=== PATIENT | male | born 1965 | race Caucasian/White ===

== ENCOUNTER 2017-10-25 09:58 | Observation (INO) ==
[2017-10-25] MEDS ORDERED: Dicyclomine Inj 20 MG/2 ML Ampul IM ONE (10:36)
[2017-10-25] MEDS ORDERED: Sod Chloride 0.9% Inj 1,000 ML IV.SIG ONE (10:36)
--- NOTE | 2017-10-25 10:57 | ED ---
HPI General Chief complaint: Nausea/Vomiting/Diarrhea Stated complaint: GI Time Seen by Provider: 10/25/17 10:32 History of Present Illness HPI Narrative: Patient comes emerge from complaining of nausea, vomiting, and diarrhea ongoing for 4 days. Patient reports 3 other people in the house where he is living has similar symptoms. Patient denies any fevers, chest pain, shortness of breath, loss or change in bladder. Patient reports associated decreased appetite. Denies anything making symptoms better. Eating or drinking anything makes symptoms worse. Denies any recent antibiotic use or travel. Patient reports associated right lower quadrant tenderness. Related Data Home Medications Medication Instructions Recorded Confirmed No Known Home Medications 10/25/17 10/25/17 Allergies Allergy/AdvReac Type Severity Reaction Status Date / Time Penicillins Allergy Unknown Verified 10/25/17 10:36 Review of Systems Except as stated in HPI: all other systems reviewed are negative [facility] Medical History Medical History Medical history unknown (Acute) Patient denies medical problems (Acute) Social History Social History Substance History: No History of Abuse Second Hand Smoke Exposure: Yes Smoking Status: Current every day smoker Tobacco Type: Cigarettes How Often Do You Have a Drink Containing Alcohol: Monthly or less Recent Travel in [facility] within the Last 8 Weeks: No Recent Out of Country Travel within the Last 8 Weeks: No Immunization History Tetanus Immunization: Unsure Exam Narrative Exam Narrative: GENERAL: Well-developed, well nourished, in no acute distress, and non-ill appearing. SKIN: Focused skin assessment warm and dry. HEAD: Atraumatic. Normocephalic. EYES: Pupils equal and round. EOMI. No scleral icterus. No injection or drainage. ENT: No nasal bleeding or discharge. Mucous membranes pink and moist. NECK: Trachea midline. Supple. No nuclear rigidity. CARDIOVASCULAR: Regular rate and rhythm. No murmur appreciated. RESPIRATORY: No accessory muscle use. No respiratory distress. Clear to auscultation. Breath sounds equal bilaterally. GASTROINTESTINAL: Abdomen soft, nondistended, and no guarding. Hepatic and splenic margins not palpable. Normal bowel sounds x4. No pulsatile mass. Patient reports tenderness to palpation right lower quadrant. No peritoneal signs. MUSCULOSKELETAL: No obvious deformities. No clubbing. No cyanosis. No edema. Full range of motion. NEUROLOGICAL: Awake and alert. No obvious cranial nerve deficits. Motor grossly within normal limits. Normal speech. PSYCHIATRIC: Appropriate mood and affect; insight and judgment normal. Course Consultations Consultation #1: Discussed patient with Dr. Castillo's SPIN INSTRUCTOR, who is agreeable to admit the patient for Dr. Castillo. Time: 14:55 Initial Documented Vital Signs Temperature 97.7 F 10/25/17 10:03 Pulse Rate 74 10/25/17 10:03 Respiratory Rate 18 10/25/17 10:03 Blood Pressure 112/61 10/25/17 10:03 Pulse Oximetry 98 10/25/17 10:03 Last Documented Vital Signs Temperature 97.7 F 10/25/17 10:03 Pulse Rate 54 L 10/25/17 12:17 Respiratory Rate 16 10/25/17 12:17 Blood Pressure 119/72 10/25/17 12:17 Pulse Oximetry 100 10/25/17 12:18 Medical Decision Making MDM Narrative Medical decision making narrative: Patient seen and examined. IV was established patient was placed on continues cardiac monitoring. Initial laboratory studies were ordered. Patient was given Zofran, Bentyl, and IV fluids. Upon noted elevated lipase CT abdomen was ordered. Patient states that he has not drank since February, but used to be a heavy drinker. Discussed patient with Dr. Self, who saw evaluated patient recommends patient be admitted. Discussed all findings and plan of care patient is agreeable for admission for admission. All questions were answered. Discussed patient with hospitalist, who is agreeable to admit the patient. Patient remained stable throughout ED course. Differential Diagnosis Differential Diagnosis: Dehydration, renal insufficiency, pancreatitis, appendicitis, gastroenteritis, metabolic disturbance Lab Data Result diagrams: 10/25/17 10:36 10/25/17 10:36 Lab Results 10/25/17 10/25/17 Range/Units 10:36 10:36 WBC 3.5 L (4.0-11.0) th/mm3 RBC 4.27 L (4.50-5.90) mil/mm3 Hgb 13.1 (13.0-17.0) gm/dL Hct 39.1 (39.0-51.0) % MCV 91.6 (80.0-100.0) fL MCH 30.7 (27.0-34.0) pg MCHC 33.5 (32.0-36.0) % RDW 14.6 (11.6-17.2) % Plt Count 224 (150-450) th/mm3 MPV 7.7 (7.0-11.0) fL Neut % (Auto) 53.5 (16.0-70.0) % Lymph % (Auto) 30.0 (9.0-44.0) % Dolores % (Auto) 15.3 H (0.0-8.0) % Eos % (Auto) 0.9 (0.0-4.0) % Baso % (Auto) 0.3 (0.0-2.0) % Neut # (Auto) 1.9 (1.8-7.7) th/mm3 Lymph # (Auto) 1.0 (1.0-4.8) th/mm3 Dolores # (Auto) 0.5 (0.0-0.9) th/mm3 Eos # (Auto) 0.0 (0.0-0.4) th/mm3 Baso # (Auto) 0.0 (0.0-0.2) th/mm3 WBC Differential . Differential Comment Auto diff final Sodium 141 (136-145) meq/L Potassium 4.3 (3.5-5.1) meq/L Chloride 107 (98-107) meq/L Carbon Dioxide 24.4 (21.0-32.0) meq/L Anion Gap 10 (5-15) meq/L BUN 18 (7-18) mg/dL Creatinine 1.01 (0.60-1.30) mg/dL Estimated GFR 78 L (>89) mL/min Random Glucose 91 (74-106) mg/dL Calcium 8.4 L (8.5-10.1) mg/dL Total Bilirubin 0.4 (0.2-1.0) mg/dL AST 33 (15-37) U/L ALT 33 (12-78) U/L Alkaline Phosphatase 88 (45-117) U/L Total Protein 7.3 (6.4-8.2) g/dL Albumin 3.5 (3.4-5.0) g/dL Lipase 920 H (73-393) U/L Imaging Data Radiologist's impression: Abdomen/Pelvis CT 10/25/17 11:50 CONCLUSION: 1. No evidence for bowel obstruction. 2. Normal appendix. Discharge Plan Discharge Disposition Patient Disposition: 30 Still Patient Discharge Condition Condition: Stable Discharge Details Diagnosis: Pancreatitis Physicians Team ED Provider: Daniel Self ED Midlevel Provider: Shahram Yanez Primary Care Provider: Primary Care Susan Amato Attending Provider: Sandra Castillo Discharge Interventions Interventions: Vital Signs Last Done: 10/25/17 12:17 Status ED Status: Admitted Observation Patient
[2017-10-25 11:37] LABS: Baso % (Auto) 0.3 % (0.0-2.0); Eos % (Auto) 0.9 % (0.0-4.0); Hematocrit 39.1 % (39.0-51.0); Hemoglobin 13.1 gm/dL (13.0-17.0); Mean Corpuscular HGB Conc 33.5 % (32.0-36.0); Mean Corpuscular Hemoglobin 30.7 pg (27.0-34.0); Mean Corpuscular Volume 91.6 fL (80.0-100.0); Mean Platelet Volume 7.7 fL (7.0-11.0); Mono # (Auto) 0.5 th/mm3 (0.0-0.9); Mono % (Auto) 15.3 % (0.0-8.0); Neut # (Auto) 1.9 th/mm3 (1.8-7.7); Neut % (Auto) 53.5 % (16.0-70.0); Platelet Count 224 th/mm3 (150-450); Red Blood Count 4.27 mil/mm3 (4.50-5.90); Red Cell Distribution Width 14.6 % (11.6-17.2); White Blood Count 3.5 th/mm3 (4.0-11.0)
[2017-10-25 11:48] LABS: Albumin 3.5 g/dL (3.4-5.0); Anion Gap 10 meq/L (5-15); Aspartate Aminotransferase 33 U/L (15-37); Blood Urea Nitrogen 18 mg/dL (7-18); Calcium 8.4 mg/dL (8.5-10.1); Carbon Dioxide 24.4 meq/L (21.0-32.0); Chloride 107 meq/L (98-107); Glomerular Filtration Rate 78 mL/min (>89); Glucose,Random 91 mg/dL (74-106); Lipase 920 U/L (73-393); Potassium 4.3 meq/L (3.5-5.1); Sodium 141 meq/L (136-145)
[2017-10-25 11:49] LABS: Alanine Aminotransferase 33 U/L (12-78)
[2017-10-25 11:51] LABS: Alkaline Phosphatase 88 U/L (45-117); Total Protein 7.3 g/dL (6.4-8.2)
--- NOTE | 2017-10-25 13:52 | CT ---
EXAM DATE: 10/25/2017 1:47 PM EDT AGE/SEX: 52 years / Male INDICATIONS: Abdominal pain with nausea and vomiting for four days. CLINICAL DATA: This is the patient's initial encounter. Patient reports that signs and symptoms have been present for 4 - 6 days and indicates a pain score of 7/10. MEDICAL/SURGICAL HISTORY: None. None. ORAL CONTRAST: No oral contrast ingested. RADIATION DOSE: 8.87 CTDI (mGy) COMPARISON: No prior exams available for comparison. TECHNIQUE: Multiple contiguous axial images were obtained through the abdomen and pelvis following b olus infusion of 95 ml Omnipaque 350 (iohexol) nonionic water-soluble contrast as a single exam dos e. No oral contrast ingested. Using automated exposure control and adjustment of the mA and/or kV ac cording to patient size, radiation dose was kept as low as reasonably achievable to obtain optimal di agnostic quality images. DICOM format image data is available electronically for review and comparis on. FINDINGS: Lower Lungs: The visualized lower lungs are clear. Liver: The liver has a homogeneous density without space-occupying lesion. There is no dilation of th e biliary tree. Spleen: Homogeneous density without enlargement. Pancreas: Unremarkable without mass or calcification. Kidneys: Normal in size and shape. No evidence of mass or hydronephrosis. Adrenal Glands: Unremarkable. Aorta: Mild atherosclerotic changes without aneurysmal dilation. Bowel/Mesentery: The bowel loops are grossly unremarkable. The cecum and sigmoid colon have a normal configuration. Normal appendix. Abdominal Wall: Intact. Retroperitoneum: No evidence of adenopathy in the retrocrural, para-aortic, or deep pelvic regions. Bladder: Contours are smooth. Reproductive Organs: No abnormal masses or calcifications seen. Inguinal: The inguinal region is unremarkable without evidence of adenopathy. Bony Structures: Mild degenerative changes lumbar spine. CONCLUSION: 1. No evidence for bowel obstruction. 2. Normal appendix. Electronically signed by: Albaro Tarango MD 10/25/2017 1:51 PM EDT
[2017-10-25] MEDS ORDERED: Acetaminophen 325 MG Tablet PO PRN (14:59)
[2017-10-25] MEDS ORDERED: Bisacodyl 10 MG Supp RECTAL PRN (14:59)
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
[2017-10-25] MEDS: Sod Chloride 0.9% Inj 1,000 ML IV.CONT SCH (17:00)
[2017-10-25] MEDS: Senna/Docusate Sodium 8.6/50 MG Tablet PO SCH (21:24)
[2017-10-25] MEDS: Famotidine PF Inj 20 MG/2 ML Vial IV.PUSH SCH (21:24)
[2017-10-26] MEDS: Sod Chloride 0.9% Inj 1,000 ML IV.CONT SCH ×2 (04:27→10:18)
[2017-10-26 06:33] LABS: Carbon Dioxide 22.4 meq/L (21.0-32.0); Potassium 4.4 meq/L (3.5-5.1)
[2017-10-26 06:34] LABS: Calcium 8.2 mg/dL (8.5-10.1)
[2017-10-26 07:33] VITALS: RESP 18
[2017-10-26] MEDS: Senna/Docusate Sodium 8.6/50 MG Tablet PO SCH (08:10)
[2017-10-26] MEDS: Famotidine PF Inj 20 MG/2 ML Vial IV.PUSH SCH (08:10)
[2017-10-26 12:15] VITALS: BP 129/83; PULSE 55; TEMP 98; O2SAT 98
--- NOTE | 2017-10-26 12:38 | P.PN ---
Subjective Interval history: minimal RUQ pain, tolerated clear liquids well this morning no more n/v no diarrhea no fever wants to eat. 12 point ros completed, negative except as noted above Physical Exam Vital signs: Vital Signs 10/25/17 15:40 10/25/17 20:00 10/26/17 00:00 Temperature 98.5 F 98.8 F Pulse Rate 60 65 64 Respiratory Rate 20 16 16 Blood Pressure 116/70 124/81 116/74 Pulse Oximetry 100 100 99 10/26/17 04:00 10/26/17 07:31 10/26/17 08:00 Temperature 98.6 F 97.9 F Pulse Rate 67 58 L Respiratory Rate 16 18 Blood Pressure 119/82 125/86 Pulse Oximetry 99 99 99 10/26/17 12:00 Temperature 98.0 F Pulse Rate 55 L Respiratory Rate 18 Blood Pressure 129/83 Pulse Oximetry 98 Intake & Output 10/25/17 10/26/17 10/26/17 18:59 06:59 18:59 Intake Total 1000 / 1000 1000 / 1000 Balance 1000 / 1000 1000 / 1000 Weight 88.451 kg 88.45 kg Intake: IV 1000 / 1000 1000 / 1000 NS Inj 1,000 ML @ 100 mls/hr IV 1000 / 1000 .CONT .Q10H TIRSO Rx#:[id number] NS Inj 1,000 ML @ Wide Open IV. 1000 / 1000 SIG BOLUS ONE Rx#:[id number] Oral 0 / 0 Other: Date of Last Bowel Movement 10/25/17 Weight On Admission 88.451 kg Narrative: GENERAL: Well-nourished, well-developed patient in no apparent distress. SKIN: Warm and dry. HEAD: Atraumatic. Normocephalic. EYES: Pupils equal and round. No scleral icterus. No injection or drainage. ENT: No nasal bleeding or discharge. Mucous membranes pink and moist. NECK: Trachea midline. No JVD. CARDIOVASCULAR: Regular rate and rhythm. RESPIRATORY: No accessory muscle use. Clear to auscultation. Breath sounds equal bilaterally. GASTROINTESTINAL: Abdomen soft, mild right upper quadrant tenderness, nondistended. Hepatic and splenic margins not palpable. MUSCULOSKELETAL: Extremities without clubbing, cyanosis, or edema. No obvious deformities. NEUROLOGICAL: Awake and alert. No obvious cranial nerve deficits. Motor grossly within normal limits. Five out of 5 muscle strength in the arms and legs. Normal speech. PSYCHIATRIC: Appropriate mood and affect; insight and judgment normal. Results - Labs CBC & Chem 7: 10/25/17 10:36 10/26/17 05:02 Laboratory Results - last 24 hr 10/25/17 10/26/17 10:36 05:02 Sodium 142 Potassium 4.4 Chloride 111 H Carbon Dioxide 22.4 Anion Gap 9 BUN 13 Creatinine 0.95 Estimated GFR 84 L Random Glucose 91 Calcium 8.2 L Lipase 193 Serum Alcohol Less than 3 - Imaging Impressions Abdomen/Pelvis CT 10/25/17 11:50 CONCLUSION: 1. No evidence for bowel obstruction. 2. Normal appendix. Assessment and Plan - Assessment (1) Pancreatitis Code(s): K85.90 - Acute pancreatitis without necrosis or infection, unspecified Status: Acute (2) Nausea & vomiting Code(s): R11.2 - Nausea with vomiting, unspecified Status: Acute (3) Diarrhea Code(s): R19.7 - Diarrhea, unspecified Status: Acute (4) Hypertension Code(s): I10 - Essential (primary) hypertension Status: Chronic (5) History of ETOH abuse Code(s): Z87.898 - Personal history of other specified conditions Status: Chronic (6) Chronic asthma Code(s): J45.909 - Unspecified asthma, uncomplicated Status: Chronic - Plan 52-year-old male presented to the emergency room with nausea vomiting diarrhea in mid abdomen/right upper quadrant pain for the past [address] of the abdomen did not reveal any acute findings. Lipase 920. Patient with prior history of alcohol abuse, adamantly denies any recent use. Abdominal pain with nausea vomiting, with elevated lipase. Possible pancreatitis, lipase elevation could possibly be secondary to nausea and vomiting. -Lipase down to 193 -Advanced to clear liquids for breakfast, tolerated well. Will advance to low- fat diet and see how he tolerates -Continue with IV fluids -Antiemetics as needed --Monitor electrolytes and replace as needed -Blood alcohol negative Diarrhea associated with nausea vomiting, possibly viral. Has not had any more stools. Diarrhea has resolved. -Replace electrolytes as needed Hx of ETOH abuse -encourage to continue abstaining. History of asthma, stable -DuoNeb's as needed History hypertension, blood pressure appears stable. Patient not on any medications -Monitor blood pressure for now, no need to start any antihypertensive agent Symptoms resolving, diet has been advanced. If he tolerates low-fat diet well, we will discharged this afternoon He will need to follow-up with PCP in 1-2 weeks Continue low-fat diet Encouraged to continue abstaining from alcohol use (1) Pancreatitis Qualifiers: Chronicity: acute Pancreatitis type: unspecified pancreatitis type Acute pancreatitis complication: no infection or necrosis Qualified Code(s): K85.90 - Acute pancreatitis without necrosis or infection, unspecified (2) Nausea & vomiting Qualifiers: Vomiting type: bilious vomiting Qualified Code(s): R11.14 - Bilious vomiting (3) Diarrhea Qualifiers: Diarrhea type: unspecified type Qualified Code(s): R19.7 - Diarrhea, unspecified (4) Hypertension Qualifiers: Hypertension type: essential hypertension Qualified Code(s): I10 - Essential (primary) hypertension (6) Chronic asthma Qualifiers: Asthma severity: unspecified severity Asthma complication type: unspecified
== END 2017-10-26 15:17 | disposition home or self-care (01) ==
LOC: NEDA 09:58 → NEPD 09:58 → NEPFCDU 09:58
PROVIDERS: ADMIT Hospitalist; ATTEND Hospitalist
DX: K85.90 Acute pancreatitis without necrosis or infection, unspecified; F10.11 Alcohol abuse, in remission; I10 Essential (primary) hypertension; Z88.0 Allergy status to penicillin; J45.909 Unspecified asthma, uncomplicated; F17.210 Nicotine dependence, cigarettes, uncomplicated; Z80.1 Family history of malignant neoplasm of trachea, bronchus and lung